=== PATIENT | female | born 1960 | race Caucasian/White ===

== ENCOUNTER 2017-08-08 08:59 | Outpatient (CLI) | payer OTHER ==
--- NOTE | 2017-08-08 13:14 | MMO ---
BILATERAL SCREENING MAMMOGRAM: Date: 08/08/17 HISTORY: Screening. COMPARISON: Mammograms from 05/24/16. Mammograms from 2014, 2013, 2012, 2011, and 2010. TECHNIQUE: Bilateral screening CC and MLO mammograms. This patient's mammogram was interpreted with the assistance of computer-aided detection. FINDINGS: There are scattered fibroglandular densities. No suspicious mass, microcalcifications, or architectu ral distortion. IMPRESSION: BIRADS 2: Benign Finding(s) Continued annual mammographic screening is recommended. POS: JAVIER
== END 2017-08-08 09:00 | disposition home or self-care (01) ==
LOC: MAMMO 08:59
PROVIDERS: ATTEND Family Medicine
DX: Z12.31 Encounter for screening mammogram for malignant neoplasm of breast (principal)
CPT/HCPCS: 77067; G0202

== ENCOUNTER 2019-02-09 15:57 | Outpatient (CLI) | payer OTHER ==
--- NOTE | 2019-02-09 16:19 | MMO ---
Bilateral MAMMO Bilat Screen [facility]. CLINICAL HISTORY: Patient is 58 years old and is seen for screening. The patient has no family history of breast cancer. The patient has no personal history of cancer. VIEWS: The views performed were: bilateral craniocaudal with tomosynthesis and bilateral mediolateral oblique with tomosynthesis. FILMS COMPARED: The present examination has been compared to prior imaging studies performed at [facility] on 02/17/2013, 03/03/2014, 05/12/2015, 05/24/2016 and 08/08/2017. MAMMOGRAM FINDINGS: There are scattered fibroglandular densities. There are no suspicious masses, suspicious calcifications, or new areas of architectural distortion. IMPRESSION: THERE IS NO MAMMOGRAPHIC EVIDENCE OF MALIGNANCY. A ROUTINE FOLLOW-UP MAMMOGRAM IN 1 YEAR IS RECOMMENDED. THE RESULTS OF THIS EXAM WERE SENT TO THE PATIENT. ACR BI-RADS Category 1 - Negative MAMMOGRAPHY NOTE: 1. A negative mammogram report should not delay a biopsy if a dominant of clinically suspicious mass is present. 2. Approximately 10% to 15% of breast cancers are not detected by mammography. 3. Adenosis and dense breasts may obscure an underlying neoplasm.
== END 2019-02-09 15:58 | disposition home or self-care (01) ==
LOC: BICMAMMO 15:57
PROVIDERS: ATTEND Family Medicine
DX: Z12.31 Encounter for screening mammogram for malignant neoplasm of breast (principal)
CPT/HCPCS: 77063; 77067

== ENCOUNTER 2019-06-11 08:19 | Outpatient (CLI) | payer OTHER ==
--- NOTE | 2019-06-11 09:52 | CT ---
CT TEMPORAL BONES NONCONTRAST: DATE: 06/10/2019. HISTORY: A 58-year-old female with conductive hearing loss, ICD-10: H90.2. Rule out otosclerosis. FINDINGS: At the fissula antefenestrum bilaterally, there are tiny, faint focal hypodensities, consistent with fenestrel otosclerosis (otospongiosis). There is no morphologic abnormality of the IACs, cochlea, vestibules, vestibular aqueducts, ossicles, facial nerve canals, TMJs, carotid canals, or jugular bulbs. The bilateral middle ear cavities, mas toid antra, and mastoid air cells are clear. There is no evidence of tympanosclerosis. The bilatera l superior semicircular canals have very thin superior osseous borders; cannot rule out dehiscence. IMPRESSION: 1. Positive for fenestrel otosclerosis. 2. Questionable dehiscence of bilateral superior semicircular canals. 3. No other abnormality. POS: TPC
== END 2019-06-11 08:20 | disposition home or self-care (01) ==
LOC: CT 08:19
PROVIDERS: ATTEND Otolaryngology Plastic Surgery within the Head & Neck
DX: H90.2 Conductive hearing loss, unspecified (principal); H80.90 Unspecified otosclerosis, unspecified ear
CPT/HCPCS: 70480

== ENCOUNTER 2019-10-26 08:51 | Outpatient (CLI) | payer OTHER ==
--- NOTE | 2019-10-29 15:16 | EKG ---
Test Reason : Blood Pressure : / mmHG Vent. Rate : 057 BPM Atrial Rate : 057 BPM P-R Int : 188 ms QRS Dur : 088 ms QT Int : 444 ms P-R-T Axes : 058 088 066 degrees QTc Int : 432 ms Sinus bradycardia with sinus arrhythmia Otherwise normal ECG When compared with ECG of 20-AUG-2016 06:29, AK interval has decreased Nonspecific T wave abnormality has replaced inverted T waves in Anterior leads Confirmed by DR. Suman PENNINGTON ([id number]) on 10/29/2019 3:16:02 PM Referred By: VIKTORIA Confirmed By:DR. Suman PENNINGTON
== END 2019-10-26 08:52 | disposition home or self-care (01) ==
LOC: LABBT 08:51
PROVIDERS: ATTEND Otolaryngology Otology & Neurotology
DX: Z01.818 Encounter for other preprocedural examination (principal); H80.90 Unspecified otosclerosis, unspecified ear; H90.2 Conductive hearing loss, unspecified; H93.13 Tinnitus, bilateral
CPT/HCPCS: 85014; 93005; 93010

== ENCOUNTER 2019-11-01 07:04 | Day surgery (SDC) | payer OTHER ==
[2019-10-26 08:16] VITALS: BMI 30.7
[2019-11-01] MEDS ORDERED: Lidocaine 1% w/Epinephrine 1:100K 20 ML VIAL ONE (09:40)
[2019-11-01] MEDS ORDERED: EPINEPHrine 1 MG/ML AMP ONE (09:40)
[2019-11-01] MEDS ORDERED: Sodium Chloride 0.9% 10 ML ONE (09:41)
[2019-11-01] MEDS ORDERED: Bacitracin Zinc Ointment 30 gm TUBE ONE (09:41)
[2019-11-01] MEDS ORDERED: Fentanyl 100 MCG/2 ML VIAL ONE (09:55)
[2019-11-01] MEDS ORDERED: Midazolam HCl 2 mg/2 ml Vial ONE (09:55)
[2019-11-01] MEDS ORDERED: HYDROmorphone 0.5 MG/0.5 ML SYRINGE ONE (09:55)
[2019-11-01] MEDS ORDERED: Lidocaine 2% Jelly 5 ML TUBE ONE (09:55)
[2019-11-01] MEDS ORDERED: Propofol 1,000 MG/100 ML VIAL IV ONE (09:56)
[2019-11-01] MEDS ORDERED: Ondansetron PF 4 MG/2 ML Vial ONE (13:38)
[2019-11-01] MEDS ORDERED: Dexamethasone 20 MG/5 ML VIAL ONE (13:38)
[2019-11-01] MEDS ORDERED: ePHEDrine/0.9% NaCl/PF SYRINGE 50 mg/10 ml ONE (13:38)
[2019-11-01] MEDS ORDERED: Lidocaine 1% PF 5 ML VIAL ONE (13:38)
[2019-11-01] MEDS ORDERED: PROPOFOL 200 MG/20 ML VIAL ONE ×2 (13:38)
--- NOTE | 2019-11-01 17:56 | OP ---
DATE OF PROCEDURE: 11/01/2019 PREOPERATIVE DIAGNOSIS: Left otosclerosis. PROCEDURES PERFORMED: 1. Left stapedectomy. 2. Microscopic surgical procedure. POSTOPERATIVE DIAGNOSIS: Left otosclerosis. ANESTHESIA: General. COMPLICATIONS: None. ESTIMATED BLOOD LOSS: None. SPECIMEN: None. ASSISTANTS: None. DISPOSITION: Stable to recovery room. SUMMARY: Basic left stapedectomy 4.25 Gonzales titanium with keeper on incus. Chorda tympani completely intact and unmolested. PROCEDURE IN DETAIL: 1. Procedure #1, left stapedectomy: After informed consent was obtained, the patient was taken to the operating room, placed in supine position. General endotracheal anesthetic was administered. Table was rotated at 180 degrees. Left ear was injected postauricular and transcanal with 1% lidocaine with epinephrine. The left ear was then draped and prepped in a sterile fashion. Supra-auricular incision was made of about 2 cm and harvested fascia, that wound closed with deep 3-0 and Monocryl. The ear canal was then irrigated with copious amounts of saline and then injected the vascular strip with 1% lidocaine with epinephrine. The tympanomeatal flap was elevated for 12 and 6 o'clock position, carried down to the middle ear space and curetted the scutum, identified the facial nerve in pyramidal process. Malleus and incus moved well incontinuity and stapes bone was firmly fixed. Controller was placed in the posterior 1/3. Bellucci scissors cut the stapedial tendon after the eyelash joint was and then down fractured the superstructure. The fascia, which had been harvested previously and dried, was cut and a 7 x 7 mm graft and placed over the posterior 1/2 to 1/3 of the stapes, which had been removed manually with the footplate rasp. Prosthesis was placed 0.4 mm, 4.25 length titanium Gonzales prosthesis and a two-hand technique with the keeper on the incus with actually direct visualization over the area of the stapedectomy. Palpation showed all moved well incontinuity. Tympanomeatal flap was placed down, Gelfoam on the incision. Bacitracin ointment filled the canal and a cotton ball applied. 2. Procedure #2, microscopic surgical procedure: Throughout the entirety operation, microscope was integral part of procedure using 2 to 14 power high illumination. The patient tolerated procedure well, turned over to anesthesia in stable condition. Job ID: [id number]
== END 2019-11-01 13:35 | disposition home or self-care (01) ==
LOC: SDC 07:04
PROVIDERS: ATTEND Otolaryngology Otology & Neurotology
PROC: 09B Ear, Nose, Sinus, Excision (ICD-10-PCS; principal; 2019-11-01)
DX: H80.22 Cochlear otosclerosis, left ear (principal); H90.2 Conductive hearing loss, unspecified; H93.13 Tinnitus, bilateral; Z79.899 Other long term (current) drug therapy
CPT/HCPCS: J0171; J1100; J1170; J2001; J2250; J2405; J2704; J3010; J3490

== ENCOUNTER 2020-02-14 07:45 | Day surgery (SDC) | payer OTHER ==
[2020-02-14] MEDS ORDERED: Rocuronium Bromide 10 MG/ML (10ML VIAL) ONE (10:22)
[2020-02-14] MEDS ORDERED: Glycopyrrolate 0.2 MG/ML 5 ML SYRINGE ONE (10:22)
[2020-02-14] MEDS ORDERED: EPHEDRINE 25 MG/5 ML SYRINGE ONE (10:22)
[2020-02-14] MEDS ORDERED: Lidocaine 1% PF 5 ML VIAL ONE (10:22)
[2020-02-14] MEDS ORDERED: Dexamethasone 20 MG/5 ML VIAL ONE (10:22)
[2020-02-14] MEDS ORDERED: PROPOFOL 200 MG/20 ML VIAL ONE (10:22)
[2020-02-14] MEDS ORDERED: Ondansetron PF 4 MG/2 ML Vial ONE (10:22)
[2020-02-14] MEDS ORDERED: Lidocaine 1% w/Epinephrine 1:100K 20 ML VIAL ONE (10:29)
[2020-02-14] MEDS ORDERED: EPINEPHrine 1 MG/ML AMP ONE (10:29)
[2020-02-14] MEDS ORDERED: Bupivacaine 0.25% HCL 30 ML VIAL ONE (10:29)
[2020-02-14] MEDS ORDERED: Bacitracin Zinc Ointment 30 gm TUBE ONE (10:29)
[2020-02-14] MEDS ORDERED: Fentanyl 100 MCG/2 ML VIAL ONE (10:33)
[2020-02-14] MEDS ORDERED: Midazolam HCl 2 mg/2 ml Vial ONE (10:33)
[2020-02-14] MEDS ORDERED: Promethazine HCl 25 MG/ML VIAL ONE (12:42)
[2020-02-14] MEDS ORDERED: Acetaminophen 500 MG TAB ONE (13:48)
--- NOTE | 2020-02-14 19:22 | OP ---
DATE OF PROCEDURE: 02/14/2020 PREOPERATIVE DIAGNOSIS: Right otosclerosis. PROCEDURES PERFORMED: 1. Right stapedectomy. 2. Tympanoplasty. 3. Microscopic surgical procedure. POSTOPERATIVE DIAGNOSIS: Right otosclerosis. ANESTHESIA: General. COMPLICATIONS: None. ESTIMATED BLOOD LOSS: None. SPECIMENS: None. ASSISTANTS: None. DISPOSITION: Stable to recovery room. SUMMARY: Basic right stapes 4.25 titanium Gonzales prosthesis with the keeper on the incus, sectioned chorda electively due to stretching and drying. Repaired a small posterior TM perforation of about 1.5 mm was underlay graft. PROCEDURE IN DETAIL: Procedure #1, right stapedectomy: After informed consent was obtained, the patient was taken to the operating room, placed in supine position. General endotracheal anesthetic was administered. Table was rotated to 180 degrees. Right ear was injected postauricular and transcanal with 0.25% Marcaine with epinephrine. With the right ear draped and prepped in sterile fashion, fascia was harvested. Supra-auricular incision was closed with 3-0 and Dermabond. The patient's ear canal was irrigated, all traces of prep injected in vascular strip with 1% lidocaine with epinephrine. Tympanomeatal flap was elevated at 12 and 6 o'clock position, carried down to the middle ear space and elevated flap anteriorly. Scutum was curetted. The chorda was initially intact; however, had significant amount of drying and stretching, felt better to section it particularly with the patient still having some taste disturbance on the contralateral side after intact nerve. With exposure obtained in facial nerve and tensor, stapedial tendon, malleus and incus were moved well. Stapes was firmly fixed. Controller was placed in midportion of the stapes footplate, the IS joint with right angle hook, sectioned the stapedial tendon down fracture the stapes superstructure. Posterior half of the stapes was removed with the footplate rasp, and graft placed in the oval window niche. Two-hand technique was used to place the titanium Gonzales 4.25/0.4 prosthesis with two-hand technique in the middle ear space. Malleus and incus were moved well with continuity with this reconstruction. Procedure #2, tympanoplasty on the right. With the stapedectomy completed, Gelfoam was placed in the posterior portion of the middle ear space, Gelfoam specifically only in saline and used to tent to support underlay graft temporalis fascia on small 1.5 mm perforation in the posterior 9 o'clock position central TM. Flap was placed down and excellent coverage of this, and then Gelfoam was placed on the incision and covered the tympanoplasty. Bacitracin ointment was placed in the canal. Cotton ball applied. Procedure #3, microscopic surgical procedure: Throughout the entirety of operation, microscope was integral part using 2 to 14 power high illumination. The patient tolerated the procedure well, turned over to Anesthesia in a stable condition. Job ID: [id number]
== END 2020-02-14 14:20 | disposition home or self-care (01) ==
LOC: SDC 07:45
PROVIDERS: ATTEND Otolaryngology Otology & Neurotology
PROC: 09R Ear, Nose, Sinus, Replacement (ICD-10-PCS; principal; 2020-02-14)
PROC: 09U777Z Supplement Right Tympanic Membrane with Autologous Tissue Substitute, Via Natural or Artificial Opening (ICD-10-PCS; principal; 2020-02-14)
DX: H80.91 Unspecified otosclerosis, right ear (principal); H72.01 Central perforation of tympanic membrane, right ear; H90.2 Conductive hearing loss, unspecified; H93.13 Tinnitus, bilateral; E78.5 Hyperlipidemia, unspecified; F41.9 Anxiety disorder, unspecified; Z79.899 Other long term (current) drug therapy; Z97.4 Presence of external hearing-aid; Z98.890 Other specified postprocedural states
CPT/HCPCS: J0171; J1100; J2001; J2250; J2405; J2550; J2704; J3010; S0020

== ENCOUNTER 2020-02-25 13:40 | Outpatient (CLI) | payer OTHER ==
--- NOTE | 2020-02-25 15:02 | MMO ---
Bilateral MAMMO Bilat Screen [facility]. CLINICAL HISTORY: Patient is 59 years old and is seen for screening. The patient has no family history of breast cancer. The patient has no personal history of cancer. VIEWS: The views performed were: bilateral craniocaudal with tomosynthesis and bilateral mediolateral oblique with tomosynthesis. FILMS COMPARED: The present examination has been compared to prior imaging studies performed at [facility] on 05/12/2015, 05/24/2016, 08/08/2017 and 02/09/2019. This study has been interpreted with the assistance of computer-aided detection. MAMMOGRAM FINDINGS: There are scattered fibroglandular densities. There are no suspicious masses, suspicious calcifications, or new areas of architectural distortion. IMPRESSION: THERE IS NO MAMMOGRAPHIC EVIDENCE OF MALIGNANCY. A ROUTINE FOLLOW-UP MAMMOGRAM IN 1 YEAR IS RECOMMENDED. THE RESULTS OF THIS EXAM WERE SENT TO THE PATIENT. ACR BI-RADS Category 1 - Negative MAMMOGRAPHY NOTE: 1. A negative mammogram report should not delay a biopsy if a dominant of clinically suspicious mass is present. 2. Approximately 10% to 15% of breast cancers are not detected by mammography. 3. Adenosis and dense breasts may obscure an underlying neoplasm. Reported by: JULIETH COLON MD Electonically Signed: [id number]
== END 2020-02-25 13:41 | disposition home or self-care (01) ==
LOC: BICMAMMO 13:40
PROVIDERS: ATTEND Family Medicine
DX: Z12.31 Encounter for screening mammogram for malignant neoplasm of breast (principal)
CPT/HCPCS: 77063; 77067

== ENCOUNTER 2020-06-28 14:38 | Outpatient (CLI) | payer OTHER ==
--- NOTE | 2020-06-28 15:19 | ULT ---
TRANSABDOMINAL AND TRANSVAGINAL PELVIC ULTRASOUND WITH GRAYSCALE, COLOR-FLOW AND SPECTRAL DOPPLER SPRING GING: HISTORY:Postmenopausal bleeding FINDINGS: Uterus: 5.4 x 3 x 4cm Endometrium: 3 mm in thickness Right ovary: 2.6 x 1 x 1.3cm Left ovary: 2 x 1.3 x 1.5 cm No uterine mass or endometrial fluid is seen. Flow is demonstrated to both ovaries. No adnexal mass or free fluid in the cul-de-sac is identified. IMPRESSION: Normal exam
== END 2020-06-28 14:39 | disposition home or self-care (01) ==
LOC: BICULT 14:38
PROVIDERS: ATTEND Family Medicine
DX: N95.0 Postmenopausal bleeding (principal)
CPT/HCPCS: 76856

== ENCOUNTER 2020-12-14 11:32 | Day surgery (SDC) | payer OTHER ==
[2020-12-12 13:46] VITALS: BMI 30.7
[~2020-12-14 11:32] MED LIST: PHENYLEPHRINE-NS 100 MCG/ML 10 ML SYRINGE ONE; PROPOFOL 200 MG/20 ML VIAL ONE
--- NOTE | 2020-12-14 21:11 | OP ---
DATE OF PROCEDURE: 12/14/2020 TITLE OF PROCEDURE: Colonoscopy with snare polypectomy. PREPROCEDURE DIAGNOSIS: Average risk colon screening. POSTPROCEDURE DIAGNOSES: 1. Exam to cecum; good bowel preparation. 2. Mildly redundant colon. 3. Diminutive sigmoid colon polyp, 3 mm in diameter, removed by cold snare technique. 4. Small internal hemorrhoids. 5. Hypertrophied anal papilla. 6. Otherwise normal colonoscopy. PROCEDURE IN DETAIL: Written informed consent was obtained. The patient was brought to the endoscopy suite. Total intravenous anesthesia was administered by Dr. Judi Ambrosio and associates. The patient was placed in the left lateral decubitus position. A digital rectal exam was unremarkable. A Pentax video colonoscope was inserted through the anal canal and advanced under direct visualization to the cecum. Position in the cecum was verified by clear identification of the appendiceal orifice and the ileocecal valve. The quality of the bowel preparation was good. Each colon segment was examined carefully as the colonoscope was slowly withdrawn from the cecum. Vascular pattern and haustral folds appeared normal. No diverticular orifices were identified. In the distal sigmoid colon, a 3-mm sessile polyp was identified and removed by cold snare technique. No other synchronous polyps were identified. In the rectum, retroflexed view revealed a hypertrophied anal papilla and small internal hemorrhoids. The colon was decompressed as the colonoscope was completely removed from the patient. She was transferred to the Day Stay Surgery area for postprocedure monitoring. There were no immediate complications. RECOMMENDATIONS: 1. Await pathology results. 2. Ask the patient to call me in 1 week for pathology results. 3. Resume previous diet and medications. 4. Pending pathology results, recommend repeating a colonoscopy in 5 to 10 years. 5. Follow up in GI clinic as needed. Job ID: [id number]
== END 2020-12-14 15:20 | disposition home or self-care (01) ==
LOC: SDC 11:32
PROVIDERS: ATTEND Internal Medicine Gastroenterology
PROC: 0DBN8ZX Excision of Sigmoid Colon, Via Natural or Artificial Opening Endoscopic, Diagnostic (ICD-10-PCS; principal; 2020-12-14)
DX: K63.5 Polyp of colon (principal); K64.8 Other hemorrhoids; K62.89 Other specified diseases of anus and rectum; Q43.8 Other specified congenital malformations of intestine; R19.7 Diarrhea, unspecified; Z79.899 Other long term (current) drug therapy
CPT/HCPCS: 88305; J2704

== ENCOUNTER 2021-02-28 15:09 | Outpatient (CLI) | payer OTHER | END 2021-02-28 15:10 | disposition home or self-care (01) | LOC: BICMAMMO 15:09 | PROVIDERS: ATTEND Family Medicine | DX: Z12.31 Encounter for screening mammogram for malignant neoplasm of breast (principal) | CPT/HCPCS: 77063; 77067 ==